=== PATIENT | male | born 1995 | race Caucasian/White ===

== ENCOUNTER 2019-08-19 16:18 | Emergency (ER) | payer SELFPAY ==
[~2019-08-19] VITALS: Ht 188 cm; Wt 96.8 kg
[2019-08-19 16:21] VITALS: Ht 188 cm; Wt 96.8 kg
[2019-08-19] MEDS ORDERED: KEFLEX500 MG PO (16:58)
[2019-08-19 17:28] VITALS: BP 140/92
== END 2019-08-19 17:28 | disposition home or self-care (01) ==
LOC: D.ER 16:18
DX: S01.81XA Laceration without foreign body of other part of head, initial encounter (principal); W45.8XXA Other foreign body or object entering through skin, initial encounter

== ENCOUNTER 2021-01-25 05:37 | Emergency (ER) | payer OTHER ==
[~2021-01-25] VITALS: Ht 188 cm; Wt 104.5 kg
[~2021-01-25 05:37] MED LIST: KEFLEX500 MG PO
[2021-01-25 05:40] VITALS: Ht 188 cm; Wt 104.5 kg
[2021-01-25 06:39] VITALS: BP 130/84
== END 2021-01-25 06:40 | disposition home or self-care (01) ==
LOC: D.ER 05:37
DX: S51.811A Laceration without foreign body of right forearm, initial encounter (principal); W22.8XXA Striking against or struck by other objects, initial encounter; Y93.9 Activity, unspecified; Y92.9 Unspecified place or not applicable